=== PATIENT | female | born 1975 | race Caucasian/White ===

== ENCOUNTER 2016-12-05 04:35 | Emergency (ER) | payer OTHER ==
[~2016-12-05] VITALS: Ht 170.2 cm; Wt 81.6 kg
--- NOTE | 2016-12-05 04:42 | ED HEADACHE COMPLAINT ---
History of Present Illness General Chief Complaint: Headache Stated Complaint: BIBA FROM LOCK UP W/ MIGRAINE Source: patient, EMS, police Exam Limitations: no limitations Vital Signs & Intake/Output Vital Signs & Intake/Output Vital Signs Date Time Temp Pulse Resp B/P Pulse O2 O2 Flow FiO2 Ox Delivery Rate 12/056 Room Air 12/05 440 97.4 64 18 122/73 97 Room Air Allergies Coded Allergies: No Known Allergies (12/05/16) Triage Nurses Notes Reviewed? yes HPI: Patient presents from police lockup for a migraine. Patient states that approximately one hour ago she had an episode of SVT so she was bearing down to 50 break. Patient states she has onset of throbbing left frontal headache. No radiation. Positive photophobia. Positive nausea. Positive phonophobia. No fever or chills. No blurry vision. Pain is 1010. Pain is very similar to prior migraine attacks disease. Past History Travel History Traveled to [place] past 21 day No Medical History Any Pertinent Medical History? see below for history Neurological: migraine Cardiovascular: SVT Surgical History Surgical History: none Psychosocial History Tobacco Use: Current Daily Use Daily Tobacco Use Amount/Type: => 5 Cigarettes daily ETOH Use: occasional use Illicit Drug Use: denies illicit drug use Family History Hx Contributory? No Review of Systems Review of Systems Constitutional: Reports: no symptoms. Eyes: Reports: no symptoms. Ears, Nose, Throat, Mouth: Reports: no symptoms. Respiratory: Reports: no symptoms. Cardiovascular: Reports: no symptoms. Gastrointestinal/Abdominal: Reports: no symptoms. Genitourinary: Reports: no symptoms. Musculoskeletal: Reports: no symptoms. Skin: Reports: no symptoms. Neurological/Psychological: Reports: see HPI, headache. Hematologic/Endocrine: Reports: no symptoms. Endocrine: Reports: no symptoms. Immunologic/Allergic: Reports: no symptoms. All Other Systems: Reviewed and Negative Physical Exam Physical Exam General Appearance: well developed/nourished, alert, awake, anxious, moderate distress Head: atraumatic, normal appearance Eyes: Bilateral: PERRL, EOMI. Ears, Nose, Throat: normal pharynx, normal ENT inspection, hearing grossly normal Neck: normal inspection, supple Respiratory: normal breath sounds, chest non-tender, no respiratory distress, lungs clear Cardiovascular: regular rate/rhythm, normal peripheral pulses Gastrointestinal: normal bowel sounds, soft, non-tender Back: normal inspection, normal range of motion Extremities: normal inspection, normal capillary refill, normal range of motion, no edema Psychiatric: awake, alert, oriented x 3 Cranial Nerves: normal hearing, normal speech, PERRL Coordination/Gait: normal finger to nose Motor/Sensory: no motor/sensory deficits Skin: intact, normal color, warm/dry Lymphatic: no anterior cervical greyson Core Measures Severe Sepsis Present: No Septic Shock Present: No Progress Differential Diagnosis: migraine RICHARDSON, musculoskeletal pain, tension RICHARDSON Plan of Care: Current Medications Sig/John Start time Last Medication Dose Stop Time Status Admin Ibuprofen 800 MG ONCE ONE 12/05 444 UNVr (Motrin) 12/05 445 Ondansetron HCl 4 MG ONCE ONE 12/05 444 UNVr (Zofran) 12/05 445 Sumatriptan Succinate 6 MG ONE ONE 12/05 444 UNVr (Imitrex 6MG Per 12/05 445 0.5ML Inj) Departure Departure Disposition: HOME OR SELF CARE Condition: Stable Clinical Impression Primary Impression: Migraine Additional Instructions: RETURN IF SYMPTOMS WORSEN OR FOR ANY CONCERNS Departure Forms: Customer Survey General Discharge Information
--- NOTE | 2016-12-05 06:58 | CT SCAN REPORT ---
EXAMINATION: CT HEAD WITHOUT CONTRAST CLINICAL INFORMATION: Sudden acute onset headache. COMPARISON: None. TECHNIQUE: Contiguous helical images of the brain were obtained without IV contrast. Multiplanar reconstructions were performed. DLP: 529 mGy-cm. FINDINGS: There are no pathologic extra-axial fluid collections. The lateral, third, fourth ventricles are nondilated and concordant with the appearance of the sulci. There is no evidence for acute intraparenchymal hemorrhage or infarct. There is neither mass nor mass effect. There is no shift of midline structures. The paranasal sinuses and mastoid air cells are clear. There are no osseous lesions. IMPRESSION: No evidence for acute intracranial injury.
[2016-12-05 07:35] VITALS: BP 110/76
== END 2016-12-05 15:57 ==
LOC: ERH 04:35
DX: G43.909 Migraine, unspecified, not intractable, without status migrainosus (principal)
CPT/HCPCS: 96372; J1200; J1885; J3030; J3101

== ENCOUNTER 2016-12-05 13:24 | Emergency (ER) | payer OTHER ==
[~2016-12-05] VITALS: Ht 170.2 cm; Wt 99.8 kg
--- NOTE | 2016-12-05 13:53 | ED MVC/FALL/TRAUMA COMPLAINT ---
History of Present Illness General Chief Complaint: Lower Extremity Injury Stated Complaint: BIBA KNEE PAIN Source: patient, old records, police Exam Limitations: no limitations Vital Signs & Intake/Output Vital Signs & Intake/Output Vital Signs Date Time Temp Pulse Resp B/P Pulse O2 O2 Flow FiO2 Ox Delivery Rate 12/05 1348 96 Room Air 12/05 1333 96.0 85 18 133/99 95 Room Air Allergies Coded Allergies: No Known Allergies (12/05/16) Triage Note: RECEIVED 41 YO FEMALE BIBTorie FROM COURT WITH POLICE. PT WAS HERE THIS AM FROM LOCK UP FOR H/A AND DISCHARGED. PT REPORTS HX OF LEFT KNEE MCL, AND REPORTS HER LEFT KNEE GAVE OUT, CAUSING HER TO FALL. PT REPORTS LEFT KNEE PAIN AND H/A 05/05. PT ALSO REPORTS BILATERAL LEFT UPPER THUMB PAIN AND SMALL WOUND TO LEFT UPPER THUMB AREA. PT ARRIVED IN HANDCUFFS WITH POLICE PRESENCE. Triage Nurses Notes Reviewed? yes Onset: Morning Duration: hour(s):, constant, continues in ED Timing: recent history Severity: severe Injuries/Fall Location: upper extremity, lower extremity Method of Injury: direct blow, fall Loss of Consciousness: no loss of consciousness Modifying Factors: Worsens With: movement, palpation. Associated Symptoms: trouble walking LMP (ages 10-50): post menopausal : No Patient currently breastfeeds: No HPI: Several hours prior to admission patient lost balance with handcuffs struck left knee and right hand on the ground. She complains of pain abdomen range of motion worse with palpation difficulty ambulating. She reports having previous knee injury. There was no fever chills nausea vomiting diarrhea abdominal pain chest pain shortness of breath headache dysuria rash bleeding. Past History Travel History Traveled to [place] past 21 day No Medical History Any Pertinent Medical History? see below for history Neurological: migraine EENT: NONE Cardiovascular: SVT Respiratory: NONE Gastrointestinal: NONE Hepatic: NONE Renal: NONE Musculoskeletal: NONE Psychiatric: NONE Endocrine: NONE Blood Disorders: NONE Cancer(s): NONE Surgical History Surgical History: none Psychosocial History What is your primary language Sinhala Tobacco Use: Current Daily Use Daily Tobacco Use Amount/Type: => 5 Cigarettes daily Family History Hx Contributory? No Review of Systems Review of Systems Constitutional: Reports: no symptoms. Eyes: Reports: no symptoms. Ears, Nose, Throat, Mouth: Reports: no symptoms. Respiratory: Reports: no symptoms. Cardiovascular: Reports: no symptoms. Gastrointestinal/Abdominal: Reports: no symptoms. Genitourinary: Reports: no symptoms. Musculoskeletal: Reports: see HPI, joint pain. Skin: Reports: no symptoms. Neurological/Psychological: Reports: no symptoms. All Other Systems: Reviewed and Negative Physical Exam Physical Exam General Appearance: well developed/nourished, alert, awake, anxious, mild distress, obese Head: atraumatic, normal appearance Eyes: Bilateral: normal appearance, PERRL, EOMI, normal inspection. Ears, Nose, Throat, Mouth: hearing grossly normal, moist mucous membrane Neck: normal inspection, supple, full range of motion, normal alignment Respiratory: normal breath sounds, chest non-tender, no respiratory distress, quiet respiration, lungs clear Cardiovascular: regular rate/rhythm, normal peripheral pulses, norml femoral pulses equa Peripheral Pulses: 4+ carotid (R), 4+ carotid (L) Gastrointestinal: normal bowel sounds, soft, non-tender, no organomegaly Back: normal inspection, normal range of motion, no vertebral tenderness Extremities: bony-point tenderness, limited range of motion, pain with movement Neurologic/Psych: no motor/sensory deficits, awake, alert, oriented x 3, normal mood/affect, concreter II-XII nml as tested Skin: intact, normal color, warm/dry Core Measures ACS in differential dx? No Severe Sepsis Present: No Septic Shock Present: No Progress Differential Diagnosis: ext injury Plan of Care: Orders Procedure Date/time Status Durable Medical Equipment 12/05 1529 Active Current Medications Sig/John Start time Last Medication Dose Stop Time Status Admin Ketorolac 60 MG ONCE ONE 12/05 1530 UNVr Tromethamine 12/05 1531 (Toradol) Diagnostic Imaging: Viewed by Me: Radiology Read. Discussed w/RAD: Radiology Read. Radiology Impression: no acute abnormality, no fracture, no dislocation Departure Departure Time of Disposition: 1528 Disposition: HOME OR SELF CARE Condition: Stable Clinical Impression Primary Impression: Contusion of hand, right Qualifiers: Encounter type: initial encounter Qualified Code: S60.221A - Contusion of right hand, initial encounter Secondary Impressions: Knee contusion Qualifiers: Encounter type: initial encounter Laterality: left Qualified Code: S80.02XA - Contusion of left knee, initial encounter Referrals: PATIENT HAS NO PRIMARY CARE DR (PCP/Family) Departure Forms: General Discharge Information Procedures Splinting Location: right hand Manual Alignment Performed: No Pre-Made Type: velcro Splint: wrist Splint Applied By: splint applied by other Pre-Proc Neuro Vasc Exam: normal Post-Proc Neuro Vasc Exam: normal
--- NOTE | 2016-12-05 15:05 | RADIOLOGY REPORT ---
EXAMINATION: XR HAND, LEFT AND RIGHT XR KNEE, LEFT CLINICAL INFORMATION: Fall, pain. Assess for fracture. COMPARISON: None. TECHNIQUE: Left hand: AP, lateral and oblique views were obtained. Right hand: AP, lateral and oblique views were obtained. Left knee: AP, bilateral oblique and lateral views were obtained. FINDINGS: Left hand: There is normal alignment of the bones. No fractures are demonstrated. Bone density is normal. The soft tissues are unremarkable and there are no radiopaque foreign bodies. Right hand: There is normal alignment of the bones. No fractures are demonstrated. Bone density is normal. The soft tissues are unremarkable and there are no radiopaque foreign bodies. Left knee: There is normal alignment of the patellofemoral and knee joints. There is mild narrowing of the medial compartment of the knee joint. No fractures are demonstrated. Bone mineralization is normal. There are no radiopaque foreign bodies. There is a small joint effusion. IMPRESSION: 1. Unremarkable x-rays of the left and right hands. 2. There are no fractures or subluxations in the left knee joint, but there appears to be a small joint effusion.
[2016-12-05 18:30] VITALS: BP 137/65
== END 2016-12-05 15:58 ==
LOC: ERH 13:24
DX: S60.221A Contusion of right hand, initial encounter (principal); S80.02XA Contusion of left knee, initial encounter; W19.XXXA Unspecified fall, initial encounter; Y93.89 Activity, other specified; Y92.9 Unspecified place or not applicable; G43.909 Migraine, unspecified, not intractable, without status migrainosus
CPT/HCPCS: 73130-LT; 73130-RT; 73562-LT; 96372; J1200; J1885; J3030; J3101